=== PATIENT | male | born 1965 | race Caucasian/White ===

== ENCOUNTER 2018-11-23 19:55 | Emergency (ER) | payer MEDICAID ==
[~2018-11-23] VITALS: Ht 167.6 cm; Wt 90.7 kg
[2018-11-23 20:09] VITALS: BP_SYST 149
--- NOTE | 2018-11-23 20:13 | NUR ---
Patient triaged and placed in waiting room. VSS and patient appears in no acute distress at this time. Awaiting available bed, and MD notified of need for MSE.
--- NOTE | 2018-11-23 20:36 | NUR ---
Patient to ER bed 2 to gown for evaluation. Side rails up.
--- NOTE | 2018-11-23 21:13 | NUR ---
Patient c/o s/p fall 1 week ago. C/o increased pain in left leg and noticed a red bump with erythema and swelling to the site closest to his knee. Pain is 6/10. Patient denies taking any medications for the pain.
--- NOTE | 2018-11-23 21:28 | NUR ---
ER Dr. Grady at bedside examining patient.
[2018-11-23 22:10] VITALS: BP_SYST 149
--- NOTE | 2018-11-23 22:11 | NUR ---
Patient given written and verbal discharge instructions and verbalizes understanding. ER MD discussed with patient the results and treatment provided. Patient in stable condition. ID arm band removed. Rx of ibuprofen, norco, knee imobilizer, and crutches given. Patient educated on pain management and to follow up with PMD. Pain Scale 0/10. Opportunity for questions provided and answered. Medication side effect fact sheet provided.
== END 2018-11-23 22:10 | disposition home or self-care (01) ==
LOC: SED 19:55
DX: S83.92XA Sprain of unspecified site of left knee, initial encounter (principal); R03.0 Elevated blood-pressure reading, without diagnosis of hypertension; W01.0XXA Fall on same level from slipping, tripping and stumbling without subsequent striking against object, initial encounter; Y93.89 Activity, other specified; Y92.89 Other specified places as the place of occurrence of the external cause; Y99.8 Other external cause status
CPT/HCPCS: 73564; 99283